=== PATIENT | male | born 1945 | race Hispanic/Latino ===

== ENCOUNTER 2018-09-12 07:07 | Outpatient (CLI) | payer MEDICARE ==
[2018-09-12] MEDS ORDERED: PROVENTIL IH ONE (08:22)
--- NOTE | 2018-09-16 20:44 | Pulmonary Function Test ---
PULMONARY FUNCTION TEST INTERPRETATION: Spirometry, forced vital capacity is moderately reduced below predicted values for age and height (3.62 liters). One-second forced expiratory volume (FEV1) moderately reduced (1.97 liters). Flow volume loop shows obstructive pattern. FEV1/FVC ratio reduced. FEF 25-75 reduced. Maximum voluntary ventilation reduced. Lung volumes obtained by plethysmography shows increased residual volume. Single breath diffusion of carbon monoxide is reduced. Airway resistance is mildly increased. Bronchodilator: There is a 500 mL increase in forced vital capacity and a 300 mL increase in FEV1 following bronchodilator. Oximeter resting room air 96%. IMPRESSION: Moderate airflow obstruction with at least partial bronchodilator reversibility. Some degree of air trapping. Reduced diffusion. Consistent with COPD, possibly with an asthmatic component. Adequate resting oxygenation. JOB# [id number]/CAMRON
== END 2018-09-12 07:08 | disposition home or self-care (01) ==
LOC: PF 07:07
PROVIDERS: ATTEND Internal Medicine Cardiovascular Disease
DX: R06.02 Shortness of breath (principal); I73.9 Peripheral vascular disease, unspecified; E78.5 Hyperlipidemia, unspecified; E78.00 Pure hypercholesterolemia, unspecified; I10 Essential (primary) hypertension; J43.9 Emphysema, unspecified; K21.9 Gastro-esophageal reflux disease without esophagitis
CPT/HCPCS: 94060; 94640; 94726; 94729